=== PATIENT | male | born 1990 | race Caucasian/White ===

== ENCOUNTER → 2019-02-28 16:52 | Outpatient (CLI) | payer MEDICAID | END | disposition home or self-care (01) | LOC: D.RAD 16:52 | PROVIDERS: ATTEND Emergency Medicine | DX: J45.909 Unspecified asthma, uncomplicated (principal) ==

== ENCOUNTER 2019-11-17 10:55 | Emergency (ER) | payer OTHER ==
[~2019-11-17] VITALS: Ht 169.9 cm; Wt 58.8 kg
[2019-11-17 11:00] VITALS: Ht 169.9 cm; Wt 58.8 kg
[2019-11-17] MEDS ORDERED: REQUIP0.25 MG PO (11:03)
[2019-11-17] MEDS ORDERED: ADDERALL 30 MG30 MG PO (11:03)
[2019-11-17] MEDS ORDERED: ELAVIL25 MG PO (11:04)
[2019-11-17] MEDS ORDERED: KLONOPIN0.5 MG PO (11:04)
[2019-11-17] MEDS ORDERED: PERCOCET 7.5/321 TAB PO (11:05)
[2019-11-17] MEDS ORDERED: ALBUTEROL SULF8.5 GM INH (11:05)
[2019-11-17] MEDS ORDERED: ZOLOFT25 MG PO (11:06)
[2019-11-17 11:32] LABS: BASOPHILS 0.6 % (0-2); EOSINOPHILS 3.2 % (0-7); HEMATOCRIT 48.8 % (42.0-54.0); HEMOGLOBIN 16.2 g/dL (13.5-17.5); IMMATURE GRANULOCYTES 0.3 % (0-5); MCH 30.6 pg (26.0-34.0); MCHC 33.2 g/dL (31.0-37.0); MCV 92.1 fL (80.0-100.0); MEAN PLATELET VOLUME 10.3 fL (7.4-10.4); MONOCYTES 10.4 % (2-11); NEUTROPHILS 62.5 % (40-80); PLATELET COUNT 311 10x3/uL (130-400); RDW 12.8 % (11.5-14.5); WBC 10.5 10x3/uL (4.8-10.8)
[2019-11-17 11:35] LABS: APPEARANCE CLEAR (CLEAR); BACTERIA NONE SEEN /hpf (NEGATIVE); BILIRUBIN NEGATIVE (NEGATIVE); COLOR YELLOW (YELLOW); GLUCOSE NEGATIVE (NEGATIVE); KETONE NEGATIVE (NEGATIVE); NITRITE NEGATIVE (NEGATIVE); PROTEIN TRACE mg/dL (NEGATIVE); UROBILINOGEN NORMAL (NORMAL); WHITE CELLS - URINE NSEEN /hpf (NEGATIVE)
[2019-11-17 12:04] LABS: CALC OSMOLALITY 278 mosm/kg (275-300); CALCIUM 9.1 mg/dL (8.5-10.1); CARBON DIOXIDE 29.4 mmol/L (21.0-32.0); CHLORIDE - SERUM 100 mmol/L (98-107); GLUCOSE 102 mg/dL (74-106); SODIUM 139 mmol/L (136-145); UREA NITROGEN 14 mg/dL (7-18); eGFR NON AFRICAN AMERICAN > 90 mL/min (90-120)
[2019-11-17 12:09] LABS: ALKALINE PHOSPHATASE 95 U/L (46-116); ALT (SGPT) 24 U/L (10-68); AMYLASE - SERUM 45 U/L (25-115); BILIRUBIN - TOTAL 0.34 mg/dL (0.2-1.3); LIPASE 141 U/L (73-393); PROTEIN - SERUM 8.3 g/dL (6.4-8.2)
[2019-11-17] MEDS ORDERED: TORADOL10 MG PO (13:31)
[2019-11-17] MEDS ORDERED: TYLENOL W/CODEI1 TAB PO (13:31)
[2019-11-17] MEDS ORDERED: FLOMAX0.4 MG PO (13:31)
[2019-11-17 13:48] VITALS: BP 118/72
== END 2019-11-17 13:49 | disposition home or self-care (01) ==
LOC: D.ER 10:55
PROVIDERS: Family Medicine
DX: N20.0 Calculus of kidney (principal); R10.30 Lower abdominal pain, unspecified; J45.909 Unspecified asthma, uncomplicated; Z72.0 Tobacco use

== ENCOUNTER 2020-05-10 10:26 | Inpatient (IN) | payer OTHER ==
[~2020-05-10] VITALS: Ht 172.7 cm; Wt 59.5 kg
--- NOTE | ~2020-05-10 | EC ---
PATIENT:PATRICE OSPINA DATE OF SERVICE: 05/10/20 SEX: M MEDICAL RECORD: [id number] DATE OF : [birth year] LOCATION:D.M2 D.213 AGE OF PATIENT: 30 ADMISSION DATE: 05/10/20 REFERRING PHYSICIAN: INTERPRETING PHYSICIAN: CAMELIA CHARLES MD ECHOCARDIOGRAM REPORT ECHO CHARGES 4 ECHO COMPLETE Date: 05/11/20 CLINICAL DIAGNOSIS: IV DRUG USE, R/O VEG ECHOCARDIOGRAPHIC MEASUREMENTS (adult normal given) AC root (d.<3.7cm) 2.8 cm LV Septum d (<1.2 cm> 0.5 cm Valve Excursion 1.9 cm LV Septum (systole) 1.0 cm Left Atria (s.<4.0cm> 3.1 cm LVPW d(<1.2cm) 1.2 cm RV (d.<2.3cm) 2.2 cm LVPW (sytole) 1.3 cm LV diastole(<5.6CM) 4.8 cm MV E-F(>70mm/sec) cm LV systole 3.4 cm LVOT Diameter 1.8 cm MV exc.(>10mm) cm Est.ejection fraction (50-75%) % DOPPLER: LVIT cm/sec A 55 cm/sec E 101 cm/sec LA cm/sec RVSP 26.3 mmHg LVOT 86 cm/sec AOP1/2T m/s Asc. Ao 122 cm/sec RVOT 66 cm/sec RA cm/sec PA 79 cm/sec AV Gradient Peak 6.0 mmHg AV Mean 3.5 mmHg AV Area 1.7 cm MV Gradient Peak 3.8 mmHg MV Mean 1.9 mmHg MV Area cm COMMENTS: Director Of Agriculture: Hong MAGALLANES Radiologic Technology Instructor: Arianna Charles TAPE# PACS Pericardial Effusion N DATE OF SERVICE: PROCEDURE: Transthoracic echocardiogram. FINDINGS: 1. Left ventricle is normal size, shape, structure, and function. Ejection fraction 55%. 2. Left atrium is normal. 3. Aortic valve is normal. 4. Mitral valve is normal. ECHOCARDIOGRAM REPORT [id number] PATRICE OSPINA 5. Tricuspid valve has mild tricuspid regurgitation with normal right ventricular systolic pressures. 6. The pericardium is normal. 7. Right ventricle is normal. 8. Right atrium is normal. TRANSINT:[id number] Voice Confirmation ID: [id number] DOCUMENT ID: [id number] CAMELIA CHARLES MD CC: [id number] DICTATION DATE: 05/11/20 171 CABLE DISPATCHER: 05/11/20 1742 ADM IN [facility] [address] [id number]
[~2020-05-10 10:26] MED LIST: ADDERALL 30 MG30 MG PO; ALBUTEROL SULF8.5 GM INH; ELAVIL25 MG PO; FLOMAX0.4 MG PO; KLONOPIN0.5 MG PO; PERCOCET 7.5/321 TAB PO; REQUIP0.25 MG PO; TORADOL10 MG PO; TYLENOL W/CODEI1 TAB PO; ZOLOFT25 MG PO
--- NOTE | 2020-05-10 11:00 | NUR ---
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 EXPLAIN THE DR WILL BE IN IN A MINUTE
[2020-05-10 11:40] LABS: HEMATOCRIT 49.4 % (42.0-54.0); HEMOGLOBIN 16.6 g/dL (13.5-17.5); MCH 30.1 pg (26.0-34.0); MCHC 33.6 g/dL (31.0-37.0); MCV 89.5 fL (80.0-100.0); PLATELET COUNT 310 10x3/uL (130-400); RBC 5.52 10x6/uL (4.20-6.10); RDW 12.7 % (11.5-14.5); WBC 24.9 10x3/uL (4.8-10.8)
[2020-05-10 11:45] LABS: INR 0.97 (0.85-1.17); PROTIME 12.9 SECONDS (11.6-15.0)
[2020-05-10 11:49] LABS: CALC OSMOLALITY 283 mosm/kg (275-300); CALCIUM 9.1 mg/dL (8.5-10.1); CARBON DIOXIDE 29.8 mmol/L (21.0-32.0); CHLORIDE - SERUM 92 mmol/L (98-107); CREATININE - SERUM 4.6 mg/dL (0.6-1.3); GLUCOSE 105 mg/dL (74-106); POTASSIUM - SERUM 4.8 mmol/L (3.5-5.1); SODIUM 135 mmol/L (136-145); UREA NITROGEN 53 mg/dL (7-18); eGFR NON AFRICAN AMERICAN 16 mL/min (90-120)
[2020-05-10 11:57] LABS: LYMPHOCYTES 12 % (15-50); MONOCYTES 3 % (2-11); NEUTROPHILS 84 % (40-80); PLATELET ESTIMATE NORMAL
[2020-05-10 12:09] LABS: ALBUMIN 5.6 g/dL (3.4-5.0); ALKALINE PHOSPHATASE 103 U/L (30-120); ALT (SGPT) 31 U/L (10-68); BILIRUBIN - TOTAL 0.98 mg/dL (0.2-1.3); CKMB 12.4 U/L (0.0-3.6); PROTEIN - SERUM 9.6 g/dL (6.4-8.2)
[2020-05-10 12:13] LABS: CREATINE KINASE 987 UL (21-232); TROPONIN-I < 0.017 ng/mL (0.000-0.060)
[2020-05-10 13:39] LABS: BILIRUBIN NEGATIVE (NEGATIVE); GLUCOSE NEGATIVE (NEGATIVE); KETONE NEGATIVE (NEGATIVE); NITRITE NEGATIVE (NEGATIVE); SPECIFIC GRAVITY 1.025 (1.005-1.020); UROBILINOGEN NORMAL (NORMAL)
[2020-05-10 13:40] LABS: BACTERIA MODERATE /hpf (NEGATIVE)
[2020-05-10 13:41] LABS: CALCIUM OXALATE CRYSTALS 0-5 /hpf (NONE SEEN); WHITE CELLS - URINE 0-5 /hpf (NEGATIVE)
[2020-05-10 13:42] LABS: UDS - AMPHET POSITIVE QUAL (NEGATIVE); UDS - BARB NEGATIVE QUAL (NEGATIVE); UDS - BENZO NEGATIVE QUAL (NEGATIVE); UDS - COCAINE POSITIVE QUAL (NEGATIVE); UDS - OPIATE POSITIVE QUAL (NEGATIVE); UDS - PCP NEGATIVE QUAL (NEGATIVE); UDS - THC POSITIVE QUAL (NEGATIVE)
--- NOTE | 2020-05-10 14:28 | NUR ---
PT ARRIVED VIA WHEELCHAIR AND AMBULATED WITH STEADY GAIT TO BED ACCOMPANIED BY HIS FATHER. PT STATED HE WAS HUNGRY, SNACKS RECIEVED PER REQUEST. SPENT APPROX. 15 MINUTES DISCUSSING POC FOR PT WITH FATHER, VERBALIZED UNDERSTANDING. CALL LIGHT WTIHIN REACH. BED IN LOWEST POSITION. ORIENTED TO ROOM. PT IS VERY SPASTIC. WILL CONTINUE TO MONITOR.
[2020-05-10 17:38] VITALS: BP 125/77; Ht 172.7 cm; Wt 59.5 kg
[2020-05-11 07:06] LABS: BASOPHILS 0.2 % (0-2); EOSINOPHILS 1.9 % (0-7); HEMATOCRIT 38.9 % (42.0-54.0); HEMOGLOBIN 12.6 g/dL (13.5-17.5); IMMATURE GRANULOCYTES 0.2 % (0-5); LYMPHOCYTES 20.9 % (15-50); MCH 29.6 pg (26.0-34.0); MCHC 32.4 g/dL (31.0-37.0); MCV 91.3 fL (80.0-100.0); MEAN PLATELET VOLUME 11.4 fL (7.4-10.4); MONOCYTES 17.4 % (2-11); NEUTROPHILS 59.4 % (40-80); PLATELET COUNT 173 10x3/uL (130-400); RBC 4.26 10x6/uL (4.20-6.10); RDW 12.8 % (11.5-14.5); WBC 9.3 10x3/uL (4.8-10.8)
[2020-05-11 07:54] LABS: ALKALINE PHOSPHATASE 66 U/L (30-120); BILIRUBIN - DIRECT 0.22 mg/dL (0.00-0.30); BILIRUBIN - INDIRECT 0.61 mg/dL (0.00-1.00); BILIRUBIN - TOTAL 0.83 mg/dL (0.2-1.3); CALCIUM 7.4 mg/dL (8.5-10.1); CARBON DIOXIDE 26.8 mmol/L (21.0-32.0); CHLORIDE - SERUM 105 mmol/L (98-107); CKMB 24.3 U/L (0.0-3.6); GLUCOSE 101 mg/dL (74-106); MAGNESIUM - SERUM 2.1 mg/dL (1.8-2.4); PHOSPHOROUS 1.6 mg/dL (2.5-4.9); SODIUM 137 mmol/L (136-145)
[2020-05-11 07:58] LABS: ALBUMIN 3.1 g/dL (3.4-5.0); ALT (SGPT) 42 U/L (10-68); CALC OSMOLALITY 278 mosm/kg (275-300); CREATINE KINASE 2288 UL (21-232); POTASSIUM - SERUM 3.6 mmol/L (3.5-5.1); PROTEIN - SERUM 5.8 g/dL (6.4-8.2); TROPONIN-I < 0.017 ng/mL (0.000-0.060); UREA NITROGEN 27 mg/dL (7-18); eGFR NON AFRICAN AMERICAN > 90 mL/min (90-120)
[2020-05-11 10:11] VITALS: BP 110/60
--- NOTE | 2020-05-11 10:26 | NUR ---
PT ALERT AND ORIENTED X4 UPON ENTERING. ADMINISTERED MEDICATION, NO DIFFICULTIES. STATES HIS NECK IS SWOLLEN, DOES APPEAR TO BE. CLAIMS THERE IS NO DIFFICULTY SWALLOWING OR BREATHING WILL PASS THIS ALONG TO THE DR. DENIES ANY OTHER NEEDS. ASSESSMENT PERFORMED AT THIS TIME. WILL CONTINUE TO MONITOR.
--- NOTE | 2020-05-11 11:38 | NUR ---
I have reviewed this patient and I concur with the Shift Assessment completed by the Licensed Practical Nurse today this shift.
--- NOTE | 2020-05-11 11:43 | NUR ---
I have reviewed this patient and I concur with the Shift Assessment completed by the Licensed Practical Nurse today this shift.
[2020-05-11 13:38] VITALS: BP 152/44
[2020-05-11] MEDS ORDERED: MONODOX100 MG PO (14:04)
--- NOTE | 2020-05-11 15:19 | NUR ---
HUNG NEW BAG OF FLUIDS. PT RESTING IN BED WITH EYES CLOSED. BREATHING EVEN AND UNLABORED. NO S/S OF DISTRESS NOTED AT THIS TIME. WILL CONTINUE TO MONITOR.
--- NOTE | 2020-05-11 17:56 | NUR ---
PT HAS SIGNED ALL NECESSARY DISCHARGE PAPERWORK. IV D/C'D FROM RIGHT AC, CATHETER TIP INTACT, COVERED SITED WITH GAUZE AND TAPE. PT AMBULATING TO BATHROOM TO SHOWER. FAMILY HAS BEEN NOTIFIED TO ASSISTANT HOUSEKEEPING MANAGER PATIENT. DENIES ANY NEEDS.
== END 2020-05-11 18:28 | disposition home or self-care (01) | DRG 872 ==
LOC: D.ER 10:26 → D.M2 13:05
PROVIDERS: Family Medicine; ADMIT Family Medicine; ATTEND Family Medicine
DX: A41.9 Sepsis, unspecified organism (principal); N17.9 Acute kidney failure, unspecified; M62.82 Rhabdomyolysis; N39.0 Urinary tract infection, site not specified; E87.1 Hypo-osmolality and hyponatremia; F15.10 Other stimulant abuse, uncomplicated; F14.10 Cocaine abuse, uncomplicated; F12.10 Cannabis abuse, uncomplicated; F41.8 Other specified anxiety disorders; F90.9 Attention-deficit hyperactivity disorder, unspecified type; F31.9 Bipolar disorder, unspecified; E86.0 Dehydration

== ENCOUNTER 2021-03-06 16:38 | Emergency (ER) | payer OTHER ==
[~2021-03-06] VITALS: Ht 172.7 cm; Wt 65.0 kg
[~2021-03-06 16:38] MED LIST changes: +MONODOX100 MG PO; +TRILEPTAL300 MG PO; +ZOLOFT100 MG PO
[2021-03-06 16:43] VITALS: BP 153/103; Ht 172.7 cm; Wt 65.0 kg
[2021-03-06] MEDS ORDERED: MOBIC7.5 MG PO ×2 (17:13→17:25)
[2021-03-06] MEDS ORDERED: VENTOLIN HFA [SP8 GM INH ×3 (17:13→17:27)
[2021-03-06] MEDS ORDERED: METHOCARBAMOL500 MG PO ×2 (17:13→17:25)
== END 2021-03-06 17:34 | disposition home or self-care (01) ==
LOC: D.ER 16:38
DX: S20.212A Contusion of left front wall of thorax, initial encounter (principal); I10 Essential (primary) hypertension; K21.9 Gastro-esophageal reflux disease without esophagitis; Z72.0 Tobacco use; W50.1XXA Accidental kick by another person, initial encounter; Y93.9 Activity, unspecified; Y92.9 Unspecified place or not applicable